=== PATIENT | male | born 1940 | race Hispanic/Latino ===

== ENCOUNTER → 2018-09-26 | Outpatient (CLI) | payer OTHER | END | disposition home or self-care (01) | LOC: OIH 12:53 | PROVIDERS: ATTEND Internal Medicine Cardiovascular Disease | DX: Z13.6 Encounter for screening for cardiovascular disorders (principal) | CPT/HCPCS: 75571 ==

== ENCOUNTER 2024-08-11 03:21 | Inpatient (IN) | payer OTHER, MEDICARE ==
[~2024-08-11] VITALS: Ht 167.6 cm; Wt 68.5 kg
--- NOTE | 2024-08-11 03:38 | ERN ---
ED Note History of Present Illness Stated Complaint: PAINFUL URINATION X 3 DAYS Chief Complaint: Painful Urination Time Seen by MD: 03:24 Dictation: This is an 84-year-old male who came via EMS complaining of painful urination for about a week he is somewhat confused in terms of the number of days although he stated that he has had issues for 3 days. He denied any hematuria. No fevers or chills. Already been seen 3 times at [facility] and other facilities for the same problem. It is unclear if he has been given any antibiotics. He has never had any indwelling Leonard but he did state that he takes 2 medications finasteride and Flomax for BPH He denied any urethral discharge. A history of back pain stating where his kidneys are located Temperature 97.9 pulse 83 respirations 16 blood pressure 171/84 with a pulse oximetry of 100% on room air His other chronic medical problems include hypertension, diabetes mellitus, hypercholesterolemia and BPH Allergies: Coded Allergies: No Known Drug Allergies (Unverified Allergy, Unknown, 08/11/24) Past Medical History Past Medical History: Diabetes-Type II, High Cholesterol, Hypertension Surgical History: Unknown RN Note Reviewed/Agreed w/PFSH: Yes Review of System Dictation Constitutional: Negative for fever,chills, and weight loss Eyes: Negative for injury, pain,redness, and discharge ENT: Negative for injury,pain or swelling Cardiovascular: Negative for chest pain, palpitations, and edema Respiratory: Negative for shortness of breath, cough, and wheezing, Abdomen/GI: Negative for abdominal pain, nausea, vomiting, diarrhea, and constipation Back: Negative for injury and pain : Negative for injury, bleeding and discharge positive for painful urination and frequency MS/Extremity: Negative for injury and deformity Skin: Negative for rash, and discoloration Neuro: Negative for headache, weakness, numbness, tingling, and seizure Psych: Negative for suicide ideation, homicidal ideation, and hallucinations Initial Vital Sign VS Vital Signs Date Time Temp Pulse Resp B/P (MAP) Pulse Ox O2 Delivery O2 Flow Rate FiO2 08/11/24 03:31 97.9 83 16 171/84 100 Room Air 0 08/11/24 04:29 21 Physical Exam Dictation General: awake, alert, NAD elderly male who appears to have urine on his clothes Head/Face: Normocephalic, atraumatic Eyes: PERRL, EOMI, vision at baseline ENT: oral cavity clear, TMs clear, no signs of infection Neck: Trachea midline, supple, no nuchal rigidity Cardiovascular: RRR, normal S1/S2, grade 2/6 ejection systolic murmur at the left sternal border and apex no JVD Respiratory: CTAB, no respiratory distress, No rales or wheezes Abdomen: Soft, non-tender, non-distended, normal bowel sounds, no guarding or rebound. Skin: Warm, dry, normal turgor, no rash MS/Extremity: Pulses equal, no cyanosis, neurovascular intact, FROM Neuro: COAx4, GCS 15, strength 5/5, CN 2-12 intact, normal cerebellar exam, normal gait, Psych: Normal behavior, mood, and affect normal Extremities-trace edema without any palpable cords, Homans sign is negative Results (Laboratory/Radiology) Laboratory/Radiology Laboratory Tests Test 08/11/24 04:12 08/11/24 05:34 Urine Color LIGHT-ORANGE (YELLOW) Urine Appearance CLOUDY (CLEAR) H Urine pH 6.0 (5.0-8.0) Urine Specific [place] 1.009 (1.001-1.031) Urine Protein 70 mg/dL (NEGATIVE) H Urine Glucose (UA) NEGATIVE mg/dL (NEGATIVE) Urine Ketones 5 mg/dL (NEGATIVE) H Urine Occult Blood LARGE (NEGATIVE) H Urine Nitrate NEGATIVE (NEGATIVE) Urine Bilirubin NEGATIVE mg/dL (NEGATIVE) Urine Urobilinogen 0.2 mg/dL (0.2-1.0) Urine Leukocyte Esterase 500 [place]/uL (NEGATIVE) H Urine RBC TNTC /HPF (0-1) H Urine WBC TNTC /HPF (0-1) H Urine WBC Clumps (Auto) FEW /HPF (0-1) Urine Other Crystals (Auto) 12 /HPF (None Seen) Urine Bacteria None /HPF (None Seen) White Blood Count 8.3 K/uL (4.8-10.8) Red Blood Count 3.52 MIL/uL (4.50-6.20) L Hemoglobin 12.0 g/dL (14.0-18.0) L Hematocrit 36.3 % (42-54) L Mean Corpuscular Volume 103.1 fL (79-99) H Mean Corpuscular Hemoglobin 34.1 pg (27.0-33.0) H Mean Corpuscular Hemoglobin Concent 33.1 g/dL (32.0-36.0) Red Cell Distribution Width 13.2 % (11.0-15.5) Platelet Count 149 K/uL (130-400) Mean Platelet Volume 10.6 fL (7.5-10.5) H Immature Granulocyte % (Auto) 0.1 % (0-1) Neutrophils (%) (Auto) 75.8 % (40.0-77.0) Lymphocytes (%) (Auto) 15.4 % (21.0-51.0) L Monocytes (%) (Auto) 7.6 % (3.0-13.0) Eosinophils (%) (Auto) 0.7 % (0.0-8.0) Basophils (%) (Auto) 0.4 % (0.0-5.0) Neutrophils # (Auto) 6.3 K/uL (1.8-7.7) Lymphocytes # (Auto) 1.3 K/uL (1.0-4.8) Monocytes # (Auto) 0.6 K/uL (0.1-1.0) Eosinophils # (Auto) 0.06 K/uL (0.00-0.70) Basophils # (Auto) 0.03 K/uL (0.00-0.20) Absolute Immature Granulocyte (auto 0.01 K/uL (0-1) Nucleated Red Blood Cells 0.0 % (0.0-0.19) Sodium Level 138 mmol/L (136-145) Potassium Level 4.2 mmol/L (3.5-5.1) Chloride Level 101 mmol/L (101-111) Carbon Dioxide Level 32 mmol/L (21-32) Blood Urea Nitrogen 14 mg/dL (7-18) Creatinine 1.2 mg/dL (0.5-1.3) Glomerular Filtration Rate Calc 59 mL/min (>90) Random Glucose 93 mg/dL (70-105) Lactic Acid Level 1.2 mmol/L (0.8-2.5) Total Calcium 8.4 mg/dL (8.5-10.1) L Labs Reviewed?: Yes ED Course ED Course Orders Procedure Category Date Status Time Urinalysis Profile LAB 08/11/24 Complete 03:39 Morphine 2mg Syg PHA 08/11/24 Complete (Morphine 2mg Syg) 04:30 Culture Urine MALIK 08/11/24 In Process 04:20 Cbc With Differential LAB 08/11/24 Complete 05:27 Basic Metabolic Panel LAB 08/11/24 Complete 05:27 Lactic Acid LAB 08/11/24 Complete 05:27 Blood Cult MALIK 08/11/24 In Process 05:27 0.9%Nacl 1000ml (Ns PHA 08/11/24 In Process 1000ml) 05:30 Ceftriaxone 1g Vial PHA 08/11/24 Complete (Rocephine 1g Inj) 06:00 Edm Admit Bridge Order ADM 08/11/24 Verified 06:56 Current Medications Medications (Trade) Dose Ordered Sig/Emory Route PRN Reason Start Time Stop Time Status Last Admin Dose Admin Ceftriaxone Sodium (ROCEphine 1G INJ) 1 gm ONCE ONCE IVPB 08/11/24 06:00 08/11/24 06:01 DC 08/11/24 06:02 Morphine Sulfate (morPHINE 2MG SYG) 1 mg ONCE ONCE IVP 08/11/24 04:30 08/11/24 04:31 DC 08/11/24 04:24 Sodium Chloride 1,000 ml @ 125 mls/hr ONCE ONCE IV 08/11/24 05:30 08/11/24 13:29 08/11/24 05:46 Vital Signs Date Time Temp Pulse Resp B/P (MAP) Pulse Ox O2 Delivery O2 Flow Rate FiO2 08/11/24 06:22 98.4 64 18 156/86 100 Room Air* 0 08/11/24 04:29 70 17 140/68 100 Room Air* 0 08/11/24 03:31 97.9 83 16 171/84 100 Room Air 0 We will perform diagnostic labs, and administer medications according to the patient's complaint. Once the results are available, will review and personally interpreted the labs to rule out any acute life-threatening emergency the trach require immediate intervention and treatment. I will then re-evaluate the patient after treatment and diagnostic exams have return to determine whether the patient requires any further testing, can safely be discharged home or need further admission to hospital for additional treatment and evaluation. 5:31 a.m. urinalysis revealed very abnormal study with large amounts of blood too numerous to count RBCs, leuko esterase positive and too numerous to count WBCs. In view of his prostate issues and multiple visits to the emergency room with similar complaints, I recommended admission to the hospital for management of the complicated UTI and have Urology evaluation as well. Agreeable Gentle hydration and cultures have also been requested. 6:57 a.m. patient has been accepted by [facility] for [facility] hospitalist group for admission and further management Medical Decision Making MDM MDM: Differential diagnosis: Complicated cystitis, prostatitis, pyelonephritis, urethritis, BPH Rationale: Tests considered and ordered secondary to shared decision making include: labs, ECG and radiology Previous outside records reviewed: Old ER visits. Risk of complication and/or morbidity or mortality of patient management: None Medications-Per medication reconciliation Need for hospitalization: Patient does meet criteria for hospitalization. Need for emergency major/minor surgery: No There are no social concerns with this patient. Prescription drug management Prescriptions will include symptomatic care Patient's prior external medical records from other ER visits were reviewed by me as indicated. Prior testing and results from previous visits were reviewed. Prior tests were taken into account with medical decision making and resource utilization, independent historian/historians were used to obtain complete medical history. I independently interpreted the test that were performed, results were reviewed by me and considered findings on radiology if ordered. Medical management and examination interpretation discussions were had by me with other qualified healthcare professionals as indicated for the patient's care. Problem List Problem List: (1) Complicated UTI (urinary tract infection) (2) BPH (benign prostatic hyperplasia) (3) Diabetes mellitus (4) Uncontrolled hypertension (5) Hyperlipidemia DX & DISP Disposition: Inpatient Decision to Admit Time: 05:33 Departure Impression: Primary Impression: Complicated UTI (urinary tract infection) Additional Impressions: BPH (benign prostatic hyperplasia), Diabetes mellitus, Uncontrolled hypertension, Hyperlipidemia Condition: Stable Additional Instructions: Patient was informed of all the diagnostic labs and procedures conducted in the emergency room today and demonstrated understanding of the results. I personally reviewed and interpreted all the diagnostic exams performed in the ER today. The patient will be admitted to the hospital for further treatment and evaluation. Disposition-admit to facility Condition-stable/guarded Course-uncertain at this time Pain status-decreased Assessment-exam unchanged Admission Certification- I certify that the patients status is appropriate and is based on my best clinical judgment and the patient's condition as documented in the medical records Referrals: ASHER CAMACHO MD (PCP) ELSIE PRESTON MD Aug 11, 2024 03:38
[2024-08-11 04:19] LABS: APPEARANCE,URINE CLOUDY (CLEAR); BILIRUBIN,URINE NEGATIVE (NEGATIVE); COLOR,URINE LIGHT-ORANGE (YELLOW); GLUCOSE, URINE (UA) NEGATIVE (NEGATIVE); KETONES,URINE 5 mg/dL (NEGATIVE); LEUKOCYTE ESTERASE ,URINE 500 Leu/uL (NEGATIVE); NITRATE,URINE NEGATIVE (NEGATIVE); OCCULT BLOOD,URINE LARGE (NEGATIVE); PROTEIN,URINE 70 mg/dL (NEGATIVE); UROBILINOGEN,URINE 0.2 mg/dL (0.2-1.0)
[2024-08-11 04:20] LABS: ADD UA MICROSCOPIC YES
[2024-08-11 04:24] LABS: RBC,URINE TNTC /HPF (0-1); UNCLASSIFIED CRYSTAL 12 /HPF (None Seen); WBC CLUMP FEW /HPF (0-1); WBC,URINE TNTC /HPF (0-1)
[2024-08-11] MEDS: morPHINE 2 MG SYG IVP ONE (04:24)
[2024-08-11] MEDS: 0.9%NACL 1000ML 1,000 ML IV ONE (05:46)
--- NOTE | 2024-08-11 05:49 | NUR ---
PATIENT DID NOT BRING HOME MEDICATIONS
[2024-08-11 05:53] LABS: BASOPHILS # (AUTO) 0.03 K/uL (0.00-0.20); BASOPHILS % (AUTO) 0.4 % (0.0-5.0); EOSINOPHILS # (AUTO) 0.06 K/uL (0.00-0.70); EOSINOPHILS % (AUTO) 0.7 % (0.0-8.0); HEMATOCRIT 36.3 % (42-54); IMMATURE GRANULOCYTE ABSOLUTE 0.01 K/uL (0-1); LYMPHOCYTES # (AUTO) 1.3 K/uL (1.0-4.8); LYMPHOCYTES % (AUTO) 15.4 % (21.0-51.0); MEAN CORPUSCULAR HEMOGLOBIN 34.1 pg (27.0-33.0); MEAN CORPUSCULAR HGB CONC 33.1 g/dL (32.0-36.0); MEAN CORPUSCULAR VOLUME 103.1 fL (79-99); MONOCYTES # (AUTO) 0.6 K/uL (0.1-1.0); MONOCYTES % (AUTO) 7.6 % (3.0-13.0); NEUTROPHILS # (AUTO) 6.3 K/uL (1.8-7.7); NEUTROPHILS % (AUTO) 75.8 % (40.0-77.0); PLATELET COUNT (AUTO) 149 K/uL (130-400); RED BLOOD CELL COUNT(AUTO) 3.52 MIL/uL (4.50-6.20); RED CELL DISTRIBUTION WIDTH 13.2 % (11.0-15.5); WHITE BLOOD COUNT (AUTO) 8.3 K/uL (4.8-10.8)
[2024-08-11 05:55] LABS: CREATININE 1.2 mg/dL (0.5-1.3); POTASSIUM 4.2 mmol/L (3.5-5.1)
[2024-08-11] MEDS: cefTRIAXone 1G VIAL IVPB ONE (06:02)
[2024-08-11] MEDS ORDERED: PoTASSium chl 10% ELIXIR 20MEQ 20 MEQ/15 ML UDCUP PO PRN (07:00)
[2024-08-11] MEDS ORDERED: MAGNESIUM 2GM PREMIX 50ML 50 ML IV PRN (07:00)
[2024-08-11] MEDS ORDERED: DEXTROSE 50%-WATER 50 ML DISP.SYRIN IV PRN (07:00)
[2024-08-11] MEDS ORDERED: PoTASSium chloRIDE 10MEQ/100ML 100 ML IV PRN (07:00)
[2024-08-11] MEDS ORDERED: GLUCAGON 1MG KIT 1 MG ML IM PRN (07:00)
[2024-08-11] MEDS ORDERED: MAG/ALUM/SIMETH 30 ML UDCUP PO PRN (07:30)
[2024-08-11] MEDS ORDERED: DiphenhydrAMINE HCL 50 MG/ML VIAL IV PRN (07:30)
[2024-08-11] MEDS ORDERED: hydrALAZine 20MG/ML VIAL IV PRN (07:30)
[2024-08-11] MEDS ORDERED: guaiFENesin-DM 200/20MG 10ML PO PRN (07:30)
[2024-08-11] MEDS ORDERED: cefTRIAXone 1G VIAL 2 GM in 0.9%NACL 100ML 100 ML IV SCH (07:30)
[2024-08-11] MEDS ORDERED: ZOLPidem TARTrate 5 MG TAB PO PRN (07:30)
[2024-08-11] MEDS ORDERED: ondanSETRON 4MG INJ IV PRN (07:30)
[2024-08-11] MEDS ORDERED: FAMOTIDINE 20MG VIAL IV PRN (07:30)
[2024-08-11] MEDS ORDERED: LACTULOSE 20 GM/30 ML UDCUP PO PRN (07:30)
[2024-08-11] MEDS ORDERED: acetaMINOPHEN 325 MG TAB PO PRN ×2 (07:30)
[2024-08-11] MEDS: INSULIN humuLIN R 100 UNIT/ML 3ML SQ SCH (07:30)
[2024-08-11] MEDS ORDERED: morPHINE 2 MG SYG IVP PRN (07:30)
[2024-08-11] MEDS ORDERED: NITROGLYCERIN 0.4 MG SL TAB SL PRN (07:30)
--- NOTE | 2024-08-11 07:58 | HMCIMG ---
CHEST 1VW REASON: congestion COMPARISON: None. FINDINGS: Lungs appear clear. No airspace opacities or significant effusions. Heart is enlarged. IMPRESSION: Clear lungs. Cardiac enlargement.
[2024-08-11] MEDS: FAMOTIDINE 20MG TAB PO SCH (09:00)
--- NOTE | 2024-08-11 09:06 | HP ---
[facility] HISTORY AND PHYSICAL Date of Service: Aug 11, 2024 Time of Service: 08:55 PCP:Dr Villalobos Admitting: Dr Baron, Allergies: No Allergy Information Available, No Known Drug Allergies HISTORY OF PRESENT ILLNESS: [Patient is 84 years old male with a past medical history of BPH, hypertension, diabetes, hyperlipidemia, dementia, who came to emergency department with a complaint of painful urination for the past about 1 to 2 weeks. Patient is very poor historian and two each health care provider who comes to the room he tells in some ways different stories. As per ED patient already has been 3 times in [facility] and other facilities for the same problem. Patient stated he does not take any antibiotics and had Leonard catheter inserted. He stated that he has been urinating blood but hearing ER there was no blood seen in the urine, but urinalysis is positive for urine occult blood large. 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 At this moment we will admit patient for UA positive for leukocytosis and painful urination. ] Most recent vital signs temperature 98.4 pulse 59 respiration 18 blood pressure 142/65 patient is on room air satting 100%. WBC 8.3 hemoglobin 12 hematocrit 36.3 platelets 149. Sodium 138 potassium 4.2 CO2 32 BUN 14 creatinine 1.2 GFR 59 random glucose 93 lactic acid 1.2 total calcium 8.4. Chest x-ray clear lungs cardiac enlargement. CT abdomen pelvis was done but waiting for the final results/reading. REVIEW OF SYSTEMS CONSTITUTIONAL: Denies fevers, chills, or night sweats. No unintentional weight loss reported. NEUROLOGICAL: Denies headache, amaurosis fugax, motor weakness, sensory deficit, vertigo/spinning sensation, gait abnormalities, or tremors. ENT: No hearing loss, otalgia, otorrhea, rhinitis, rhinorrhea, hoarseness, or sore throat. CARDIOVASCULAR: Denies any exertional angina, dyspnea on exertion, orthopnea, paroxysmal nocturnal dyspnea, palpitations, life-threatening arrhythmias, claudication. PULMONARY: Denies any shortness of breath, cough, phlegm/sputum, hemoptysis, pleuritic chest pain. SLEEP: Denies morning headaches, daytime somnolence or napping. Denies difficulty falling asleep, staying asleep, waking from sleep. Denies knowledge of snoring. GASTROINTESTINAL: Denies any type of dysphagia to either liquids or solids. Denies nausea, vomiting, pyrosis, early satiety, abdominal pain, diarrhea, constipation, or changes in stool consistency or caliber. Denies coffee-ground emesis, hematemesis, hematochezia, or melanotic stools. GENITOURINARY: Denies frequency, urgency, nocturia, or incontinence (Storage/Irritative symptoms.) Low urinary stream, straining to void, urinary intermittency or hesitancy, splitting of the voiding stream, terminal dribbling. Patient complains of painful urination with hematuria ENDOCRINOLOGIC: Denies polyuria, polydipsia, polyphagia or heat/cold intolerances. HEMATOLOGIC: Denies thrombophilia/previous clots, or coagulopathy/bleeding disorders. ONCOLOGIC: Denies personal history of malignancy. DERMATOLOGIC: Denies rashes or pruritus. PSYCHIATRIC: Denies any suicidal or homicidal ideation. Denies hallucinations. PAST MEDICAL HISTORY: [Hypertension, hyperlipidemia, BPH, diabetes, hyperlipidemia, dementia ] PAST SURGICAL HISTORY: [ Unknown ] PAST SOCIAL HISTORY: [ Patient denies smoking. Patient denies any drug illicit. Patient denies any alcohol illicit.] FAMILY HISTORY: [ Patient lives at home alone. Patient independent ] Coded Allergies: No Known Drug Allergies (Unverified Allergy, Unknown, 08/11/24) PHYSICAL EXAM GENERAL APPEARANCE: The patient is awake, alert, and oriented, in no acute cardiopulmonary distress. NEUROLOGICAL: Cranial nerves II-XII grossly intact. Motor is 5/5 in bilateral upper and lower extremities proximal to distal. No sensory deficits. HEENT: Face is symmetric. Pupils are equal and reactive. Extraocular movements are intact. NECK: Supple. No JVD. No thyromegaly. No submental, submandibular, pre- /postauricular, occipital or supraclavicular lymphadenopathy. CHEST: Normal chest expansion. No Telemetry. LUNGS: Absence of any rales, rhonchi or any wheezing. CARDIOVASCULAR: Regular. S1 and S2 normal. No appreciable rubs, murmurs or gallops. ABDOMEN: Soft, nontender, and nondistended. There is no rebound, voluntary guarding, or rigidity. : Deferred. No Leonard. EXTREMITIES: Non-edematous and not cyanotic. No clubbing. Good capillary refill. SKIN: No skin breakdown. Vital Sign (Last 24 Hours) 08/11/24 08:18 Temp 98.4 Pulse 59 Resp 18 B/P (MAP) 142/65 Pulse Ox 100 O2 Delivery Room Air* O2 Flow Rate 0 FiO2 21 LABS: Laboratory: Test 08/11/24 07:42 08/11/24 05:34 08/11/24 04:12 Range/Units Whole Blood Glucose 94 70-110 MG/DL White Blood Count 8.3 4.8-10.8 K/uL Red Blood Count 3.52 L 4.50-6.20 MIL/uL Hemoglobin 12.0 L 14.0-18.0 g/dL Hematocrit 36.3 L 42-54 % Mean Corpuscular Volume 103.1 H 79-99 fL Mean Corpuscular Hemoglobin 34.1 H 27.0-33.0 pg Mean Corpuscular Hemoglobin Concent 33.1 32.0-36.0 g/dL Red Cell Distribution Width 13.2 11.0-15.5 % Platelet Count 149 130-400 K/uL Mean Platelet Volume 10.6 H 7.5-10.5 fL Immature Granulocyte % (Auto) 0.1 0-1 % Neutrophils (%) (Auto) 75.8 40.0-77.0 % Lymphocytes (%) (Auto) 15.4 L 21.0-51.0 % Monocytes (%) (Auto) 7.6 3.0-13.0 % Eosinophils (%) (Auto) 0.7 0.0-8.0 % Basophils (%) (Auto) 0.4 0.0-5.0 % Neutrophils # (Auto) 6.3 1.8-7.7 K/uL Lymphocytes # (Auto) 1.3 1.0-4.8 K/uL Monocytes # (Auto) 0.6 0.1-1.0 K/uL Eosinophils # (Auto) 0.06 0.00-0.70 K/uL Basophils # (Auto) 0.03 0.00-0.20 K/uL Absolute Immature Granulocyte (auto 0.01 0-1 K/uL Nucleated Red Blood Cells 0.0 0.0-0.19 % Sodium Level 138 136-145 mmol/L Potassium Level 4.2 3.5-5.1 mmol/L Chloride Level 101 101-111 mmol/L Carbon Dioxide Level 32 21-32 mmol/L Blood Urea Nitrogen 14 7-18 mg/dL Creatinine 1.2 0.5-1.3 mg/dL Glomerular Filtration Rate Calc 59 >90 mL/min Random Glucose 93 70-105 mg/dL Lactic Acid Level 1.2 0.8-2.5 mmol/L Total Calcium 8.4 L 8.5-10.1 mg/dL Urine Color LIGHT-ORANGE YELLOW Urine Appearance CLOUDY H CLEAR Urine pH 6.0 5.0-8.0 Urine Specific [place] 1.009 1.001-1.031 Urine Protein 70 H NEGATIVE mg/dL Urine Glucose (UA) NEGATIVE NEGATIVE mg/dL Urine Ketones 5 H NEGATIVE mg/dL Urine Occult Blood LARGE H NEGATIVE Urine Nitrate NEGATIVE NEGATIVE Urine Bilirubin NEGATIVE NEGATIVE mg/dL Urine Urobilinogen 0.2 0.2-1.0 mg/dL Urine Leukocyte Esterase 500 H NEGATIVE [place]/uL Urine RBC TNTC H 0-1 /HPF Urine WBC TNTC H 0-1 /HPF Urine WBC Clumps (Auto) FEW 0-1 /HPF Urine Other Crystals (Auto) 12 None Seen /HPF Urine Bacteria None None Seen /HPF Current Medications Medications (Trade) Dose Ordered Sig/Emory Route PRN Reason Start Time Stop Time Status Last Admin Dose Admin Acetaminophen (TYLenol 325MG TAB) 650 mg Q4H PRN PO MILD PAIN (1-3) 08/11/24 07:30 09/10/24 07:29 Acetaminophen (TYLenol 325MG TAB) 650 mg Q6H PRN PO MILD PAIN (1-3) 08/11/24 07:30 08/11/24 07:12 DC Acetaminophen (TYLenol 325MG TAB) 650 mg Q6H PRN PO TEMPERATURE GREATER THAN 101.5 08/11/24 07:30 09/10/24 07:29 Al Hydroxide/Mg Hydroxide (MAALox PLUS 30ML) 30 ml Q6H PRN PO INDIGESTION 08/11/24 07:30 09/10/24 07:29 Ceftriaxone Sodium 2 gm/ Sodium Chloride 100 ml @ 200 mls/hr Q24H IV 08/11/24 07:30 08/11/24 07:12 DC Ceftriaxone Sodium (Rocephin 2gm Inj) 2 gm Q24H IVPB 08/12/24 08:00 08/22/24 07:59 Dextrose (D50w) 50 ml AD PRN IV HYPOGLYCEMIA PROTOCOL 08/11/24 07:00 09/10/24 06:59 Diphenhydramine HCl (BENAdryl INJ) 25 mg Q6H PRN IV SEVERE ITCHING/RASH 08/11/24 07:30 09/10/24 07:29 Famotidine (Pepcid 20mg Vial) 20 mg BID PRN IV NAUSEA/VOMITING 08/11/24 07:30 08/11/24 07:12 DC Famotidine (Pepcid 20mg Tab) 20 mg Q48H PO 08/11/24 09:00 09/10/24 08:59 Glucagon (Glucagon 1mg Kit) 1 mg AD PRN IM HYPOGLYCEMIA PROTOCOL 08/11/24 07:00 09/10/24 06:59 Guaifenesin/ Dextromethorphan (RobiTUSSin DM 200/20MG 10ML) 10 ml Q4H PRN PO COUGH 08/11/24 07:30 09/10/24 07:29 Hydralazine HCl (APRESOLine 20MG INJ) 10 mg Q6H PRN IV For:SBP above 160;DBP above 90 08/11/24 07:30 09/10/24 07:29 Insulin Human Regular (humuLIN R 100 UNIT/ML 3ML) INSULIN SLIDING SCAL... ACHS SQ 08/11/24 07:30 09/10/24 07:29 Ketorolac Tromethamine (toRADol) 15 mg Q8H PRN IV MODERATE PAIN (4-6) 08/11/24 07:30 08/16/24 07:29 Lactulose (Constulose 20gm/ 30ml Udcup) 20 gm BID PRN PO CONSTIPATION 08/11/24 07:30 09/10/24 07:29 Magnesium Sulfate 50 ml @ 0 mls/hr PROTOCOL PRN IV other 08/11/24 07:00 09/10/24 06:59 Morphine Sulfate (morPHINE 2MG SYG) 1 mg Q4H PRN IVP SEVERE PAIN (7-10) 08/11/24 07:30 08/18/24 07:29 Nitroglycerin (Nitrostat) 0.4 mg PROTOCOL PRN SL CHEST PAIN 08/11/24 07:30 09/10/24 07:29 Ondansetron HCl (zoFRAN 4MG INJ) 4 mg Q6H PRN IV NAUSEA/VOMITING 08/11/24 07:30 09/10/24 07:29 Potassium Chloride 100 ml @ 100 mls/hr AD PRN IV POTASSIUM PROTOCOL 08/11/24 07:00 09/10/24 06:59 Potassium Chloride (K-Dur 10meq Sr Tab) 10 meq AD PRN PO POTASSIUM PROTOCOL 08/11/24 07:00 09/10/24 06:59 Potassium Chloride (KCl 10% Elixir 20meq/15ml) 10 meq AD PRN PO POTASSIUM PROTOCOL 08/11/24 07:00 09/10/24 06:59 Zolpidem Tartrate (AmbIEN) 5 mg HS PRN PO INSOMNIA 08/11/24 07:30 09/10/24 07:29 DIAGNOSTICS / RADIOLOGY: [ ] ASSESSMENT: [ Acute complicated cystitis POA Hematuria POA Multifactorial anemia due to above POA Uncontrolled diabetes mellitus type 2 with hypoglycemia POA Uncontrolled hypertension POA Electrolyte imbalance hypocalcemia 8.4 BPH POA Hyperlipidemia POA Dementia POA ] PLAN: [ Admit to: Medical-surgical floor Consults: Urologist Antibiotics: Rocephin Tests: CT abdomen pelvis NEURO: Minimize central acting medications as possible. Fall Precautions. Well lighted room through the day and minimize interruptions through the night to prevent acute delirium. PULMONARY: Chest x-ray showed cardiac enlargement but clear lungs Supplemental 02 as needed BiPAP as necessary, for respiratory distress Titrate Fio2 to keep Spo2 > or = 90% DuoNebs and CPT as needed IS hourly while awake for pulmonary hygiene Out of bed to chair as tolerated VAP Bundle Maintain aspiration precautions at all times CARDIOVASCULAR: Follow hemodynamics. Vital signs per facility protocol GI & NUTRITION: CT abdomen/pelvis pending Continue nutritional support Aspirations precautions Prokinetic agents and laxatives as needed KIDNEYS & ELECTROLYTES: Strict monitoring of intake and output Daily weights Avoid nephrotoxic agents Monitor electrolytes and replace as needed Goal urine output of 30mL/hr or 0.5mL/kg/hr Medications to be dosed according to renal function. Avoid contrast if possible ENDOCRINE: Maintain blood glucose between 100-180 at all times. Insulin sliding scale for blood glucose management Hypoglycemia and hyperglycemia protocol in place INFECTIOUS DISEASE: Trend temperature, WBC and procalcitonin level Follow cultures, deescalate antibiotics as soon as possible. Panculture if new onset fever HEMATOLOGY & COAGULATION: Leukocytosis positive on UA Monitor H&H. Keep Hgb > 7 Transfuse 1 unit of PRBC for Hgb < 7 Transfuse 1 pack of platelets of platelets < 20, 000 Watch for any signs and symptoms of bleeding SKIN: Pressure ulcer prevention per facility protocol Specialty mattress as needed Treatment plan discussed with patient and family at the bedside Medications to be reconciled once obtained by patient and/or family and available to be reconciled in computer p.r.n. medication for pain nausea and vomiting Questions were answered We will continue to monitor the patient closely Wigs Salesperson for disposition Rehab: PT/OT GI: PPI DVT: SCD's Code Status: Full Resuscitation Disposition: TBD Prognosis: Guarded] ATTESTATION BY PHYSICIAN I have seen and examined the patient. I reviewed the documentation, medical decision making, and treatment plan as noted by the mid-level provider above. I agree with the findings and plan of care. Liz Braon MD, [facility] [employer] REGULATOR Aug 11, 2024 09:06
--- NOTE | 2024-08-11 10:57 | NUR ---
DCP: HOME Pt is a , seen at local [place] by Dr Villalobos for medical care and meds. Pt lives at home alone. Has a provider thru [facility] 2hrs a day. Provider assists with meal, home management and with his ADLS. A nurse visits 1x a month as well. Pt has no DME. Pt denies need for SNF, states he wants to [facility] [place] [facility] and abhishek De Santiago [phone] will transport Addendum: 08/11/24 at 1101 by PIERRE MARIO SS Amended: Links added.
--- NOTE | 2024-08-11 11:03 | HMCIMG ---
CT ABDOMEN WITHOUT CONTRAST. CT PELVIS WITHOUT CONTRAST. INDICATION: Painful urination TECHNIQUE: Routine transaxial imaging using 5 mm slice thickness through the abdomen and pelvis without the administration of IV contrast. Thin slice reconstructions are also provided. Coronal and sagittal reformatted images acquired for interpretation. CT was performed with one or more of the following dose reduction techniques: Automated exposure control, adjustment of the mA and/or kV according to patient size, or use of iterative reconstruction technique. COMPARISON: None FINDINGS: ON NONCONTRAST IMAGING: ABDOMEN: Heart size is normal. Coronary arterial wall calcific plaque noted. Visible lung bases are clear. No abnormal right renal calcifications, hydronephrosis, perinephric inflammation, or proximal hydroureter detected. 1.2 cm nonobstructing calculus within the mid to upper portion of the left kidney. The liver is normal in size and smooth in contour without biliary duct dilation. The spleen is normal in size and attenuation. The gallbladder appears normal. The pancreas appears normal without pancreatic duct dilation. The adrenal glands appear normal. No significant abdominal, retrocrural or retroperitoneal adenopathy noted. No evidence for intra-abdominal free air or organized fluid collection. Small hiatal hernia. Tiny fat-containing nonobstructing umbilical hernia. Mild calcific plaque is noted along the abdominal aortic and iliac vessel rogers without aneurysmal dilation. PELVIS: Nominal urinary bladder wall thickening and trace surrounding inflammatory fat stranding. No evidence for free air or organized pelvic fluid collection. No significant pelvic adenopathy detected. 3.2 cm diverticulum arising medially of the first segment of the duodenum. Several diverticula along the distal colon.. Terminal ileum appears unremarkable. The appendix is absent. Prostate gland measures 5.2 x 5.2 x 4.8 cm. Visible osseous structures are intact. IMPRESSION: 1. 1.2 cm nonobstructing left renal stone and suspect nominal/mild cystitis. Prostate gland measures 5.2 x 5.2 x 4.8 cm. 2. Distal colonic diverticulosis. 3. Small hiatal hernia, tiny fat-containing nonobstructing umbilical hernia, and 3.2 cm proximal duodenal diverticulum. 4. Arteriosclerotic disease as described.
--- NOTE | 2024-08-11 14:47 | NUR ---
FAXED CT ABD/ PELVIS RESULT TO HONORIO RENDON AT DR. BARRERA OFFICE [id number], AWARE OF NEW CONSULT WITH DR. BARRERA.
[2024-08-11 15:10] VITALS: BP 141/64; PULSE 65; RESP 18; TEMP 98.2
[2024-08-11 15:28] LABS: COVID19 (SARS ANTIGEN RAPID) PRESUMPTIVE NEGATIVE (NEGATIVE); INFLUENZA TYPE A Negative For Type A (NEGATIVE); INFLUENZA TYPE B Negative For Type B (NEGATIVE)
[2024-08-11 15:55] VITALS: O2SAT 96
--- NOTE | 2024-08-11 16:08 | NUR ---
Admission The patient is admitted from the ER. He is forgetful and has a slight delay in speech. The patient himself says that he has trouble speaking. He is moving all extremities with equal strength. Unable to assess gait on this assessment but the patient voices that he uses a beltrán at home and requires help with all ADLS except eating. His chief complaint is "blood in the urine". HE has voided twice and has not shown any gross bleeding. The patient is oriented to the room and how to use the call bright. The bed is in a low position with the call bright in reach. The bed alrm is active and he is encouraged to call for any needs or concerns.
[2024-08-11 20:00] VITALS: BP 159/75; PULSE 68; RESP 19; TEMP 98.1; O2SAT 98
--- NOTE | 2024-08-11 22:22 | NUR ---
PER RN, PT CAN NOT CONSENT TO CT EXAM AND SHE WILL RESCHEDULE FOR MORNING.
[2024-08-12] VITALS (7 sets, daily range): BP systolic 141–157; BP diastolic 61–86; PULSE 57–65; RESP 18–20; TEMP 97.5–98.1; O2SAT 98–100
--- NOTE | 2024-08-12 02:05 | CONS ---
REQUESTING PHYSICIAN: Dr. Baron. REASON FOR CONSULTATION: Hematuria. HISTORY OF PRESENT ILLNESS: This 84-year-old male presents to the hospital because of painful urination and dysuria for about 2 weeks' duration. The patient with advanced Alzheimer's, history obtained primarily from chart review. The patient on direct questioning reports that he has some dysuria, has had no gross hematuria. He denies any back pain. He has no fever, no chills. ALLERGIES: Listed as none. CURRENT MEDICATIONS: Include Tylenol, ceftriaxone, Benadryl, famotidine, glucagon, guaifenesin, insulin, ketorolac, lactulose, morphine, Zofran, and Ambien on a p.r.n. basis. FAMILY HISTORY: Negative for kidney stones. SOCIAL HISTORY: The patient lives at home with a provider. PAST SURGICAL HISTORY: Unknown. PAST MEDICAL HISTORY: Includes hyperlipidemia, dementia, diabetes, and hypertension. REVIEW OF SYSTEMS: He currently has no shortness of breath or chest pain. His appetite is good. No nausea, no vomiting, no constipation or diarrhea. No headaches or dizziness. No nosebleeds. No joint pain, joint swelling, limitation of movement, night sweats, fever, chills, or skin rash. PHYSICAL EXAMINATION: GENERAL: Well-developed male in no distress. VITAL SIGNS: His temperature is 98, blood pressure is 140/65 with a pulse of 80. NECK: Has no adenopathy or supraclavicular masses palpable. LUNGS: Shea are clear to auscultation and percussion. HEART: Sounds are best heard in the fifth intercostal space, midclavicular line. ABDOMEN: Full, soft, nontender. BACK: No CVA tenderness. EXTERNAL GENITALIA: Phallus not circumcised, has a large hydrocele on the left hand side. RECTAL: Normal sphincter, empty rectum, 35 grams benign feeling prostate, no nodules. Lateral sulci clear as well as median raphae. LABORATORY DATA: Shows a white count of 8.3, hematocrit is 36, the patient's platelet count is 149. Sodium 138, potassium 4.2 and his BUN and creatinine are 14/1.2. The patient's urinalysis shows clear yellow urine, specific gravity of 1.009. He has some white cells and red cells in the urine, has no bacteria. IMAGING STUDIES: Reviewed, show atrophic kidneys bilaterally. He also has a left-sided nonobstructive kidney stone, left side measuring about 1 cm. The patient's bladder outline is smooth and he does appear to have a large hydrocele as well. ASSESSMENT: * Nonobstructing left-sided kidney stone. * Urinary tract infection * Dysuria * Hydrocele. RECOMMENDATIONS: * Scrotal ultrasound. * CT scan abdomen and pelvis with IV contrast. * Culture specific antibiotics. * Follow up with PCP as an outpatient for referral to Urology of his choice to proceed with diagnostic cystoscopy as an outpatient to complete workup for hematuria. * Finally, the patient's concerns and questions answered. Once his urinary tract infection is resolved, the patient would also be advised to proceed with PSA. Thank you for the opportunity of providing consultation on your patient. TID: [id number] RECEIPT: [id number]
[2024-08-12] MEDS: acetaMINOPHEN 325 MG TAB PO PRN (03:49)
[2024-08-12] MEDS: ketOROlac 15MG/ML VIAL (15MG/ML) IV PRN (03:53)
[2024-08-12 06:55] LABS: BASOPHILS # (AUTO) 0.04 K/uL (0.00-0.20); BASOPHILS % (AUTO) 0.6 % (0.0-5.0); EOSINOPHILS # (AUTO) 0.11 K/uL (0.00-0.70); EOSINOPHILS % (AUTO) 1.7 % (0.0-8.0); HEMATOCRIT 34.6 % (42-54); IMMATURE GRANULOCYTE ABSOLUTE 0.02 K/uL (0-1); LYMPHOCYTES # (AUTO) 1.8 K/uL (1.0-4.8); LYMPHOCYTES % (AUTO) 26.8 % (21.0-51.0); MEAN CORPUSCULAR HEMOGLOBIN 33.6 pg (27.0-33.0); MEAN CORPUSCULAR HGB CONC 33.2 g/dL (32.0-36.0); MEAN CORPUSCULAR VOLUME 101.2 fL (79-99); MONOCYTES # (AUTO) 0.6 K/uL (0.1-1.0); MONOCYTES % (AUTO) 9.6 % (3.0-13.0); PLATELET COUNT (AUTO) 155 K/uL (130-400); RED BLOOD CELL COUNT(AUTO) 3.42 MIL/uL (4.50-6.20); RED CELL DISTRIBUTION WIDTH 12.8 % (11.0-15.5); WHITE BLOOD COUNT (AUTO) 6.5 K/uL (4.8-10.8)
[2024-08-12 07:06] LABS: INR 0.97 (0.85-1.15); PROTHROMBIN TIME 10.3 SEC (9.6-11.6)
[2024-08-12 07:07] LABS: PARTIAL THROMBOPLASTIN TIME 27.1 SEC (26.3-35.5)
--- NOTE | 2024-08-12 07:23 | NUR ---
PER NURSE, PENDING CONSENT FROM FAMILY MEMBER. NURSE WILL CALL WHEN READY. Addendum: 08/12/24 at 0724 by JOHANNA CARTWRIGHT PENDING CONSENT FROM FAMILY FOR CT EXAM.
[2024-08-12 07:25] LABS: ALANINE AMINOTRANSFERASE 11 U/L (12-78); ALBUMIN 2.9 g/dL (3.5-5.0); ASPARTATE AMINOTRANSFERASE 12 U/L (10-37); BILIRUBIN,DIRECT 0.1 mg/dL (0.0-0.3); BILIRUBIN,TOTAL 0.7 mg/dL (0.2-1.0); CARBON DIOXIDE 29 mmol/L (21-32); CHLORIDE 107 mmol/L (101-111); CREATINE KINASE, TOTAL 42 U/L (21-232); CREATININE 1.2 mg/dL (0.5-1.3); GLOMERULAR FILTR. RATE CALC 59 mL/min (>90); GLUCOSE,RANDOM 97 mg/dL (70-105); HEMOGLOBIN A1C 5.6 % (4.0-6.0); POTASSIUM 3.8 mmol/L (3.5-5.1); SODIUM SERUM 137 mmol/L (136-145); TOTAL PROTEIN, SERUM 6.2 g/dL (6.0-8.3); UREA NITROGEN, BLOOD 13 mg/dL (7-18)
[2024-08-12 07:39] LABS: AMMONIA < 10 umol/L (11-32)
--- NOTE | 2024-08-12 08:02 | HMCIMG ---
US SCROTUM & CONTENTS HISTORY: Enlarged scrotum/hydrocele COMPARISON: None TECHNIQUE: Duplex scrotal ultrasound study was performed. FINDINGS: The right testes and bilateral epididymides are not well visualized most likely related to large hydrocele limiting [id number]. The left testes measures 5.7 x 2.5 x 3 cm. This is a limited study. IMPRESSION: 1. The right testes and bilateral epididymides are not well visualized most likely related to large hydrocele limiting [id number]. The left testes measures 5.7 x 2.5 x 3 cm. This is a limited study.
--- NOTE | 2024-08-12 08:26 | NUR ---
CT CONSENT Attempt to obtain verbal consent, called Abdirashid Reynoso, no answer, will attempt later today.
[2024-08-12] MEDS: CEFTRIAXONE 2GM VIAL IVPB SCH (09:07)
[2024-08-12] MEDS: PoTASSium chloRIDE 10MEQ SR 10 MEQ/TAB TAB.SR.24H PO PRN (09:21)
[2024-08-12] MEDS ORDERED: IOHEXOL-350 75 ML VIAL IV ONE (10:45)
--- NOTE | 2024-08-12 11:22 | HMCIMG ---
CT ABDOMEN/PELVIS W/WO CONTRAS HISTORY: Hematuria COMPARISON: None TECHNIQUE: Multiple sequential axial images of the abdomen and pelvis were obtained from the dome of the diaphragm through symphysis pubis. Patient was not given contrast through intravenous route. Oral contrast was not given. FINDINGS: No pleural effusion is seen bilaterally. There are bilateral interstitial fibrosis. There is no evidence of parenchymal disease or pulmonary nodule of the visualized lower lungs. Degenerative changes of the thoracolumbar spine are present. The heart is not enlarged. Stomach is poorly distended with gastric wall thickening. This may be related to gastritis with mass lesion not excluded. Gallbladder is distended. There is diverticulosis. There is questionable fat stranding adjacent to the descending colon/sigmoid colon with early acute diverticulitis not excluded. No focal abscess is seen however. Prostate gland is mildly enlarged measuring 5.2 x 4.7 cm. There is posterior bladder wall thickening measuring 9 mm. This may be related to mass lesion versus cystitis. The liver, spleen, adrenal glands and pancreas are unremarkable. There is no evidence of hydronephrosis bilaterally. No evidence of renal stone is seen. Fecal material is seen in the colon. There are normal size retroperitoneal and mesenteric lymph nodes. No ascites is seen. Atherosclerotic changes are present. Pelvic sidewalls are symmetric bilaterally. Bladder is moderately distended. There appears be large scrotal hydrocele. IMPRESSION: 1. There is diverticulosis. There is questionable fat stranding adjacent to the descending colon/sigmoid colon with early acute diverticulitis not excluded. No focal abscess is seen however. Prostate gland is mildly enlarged measuring 5.2 x 4.7 cm. There is posterior bladder wall thickening measuring 9 mm. This may be related to mass lesion versus cystitis. There appears be large scrotal hydrocele. There appears be large scrotal hydrocele. CT was performed with one or more following dose reduction techniques: automated exposure control, adjustment of the mA and kv according to patient's size, or use of a iterative reconstruction technique.
--- NOTE | 2024-08-12 13:05 | PN ---
[facility] PROGRESS NOTE Date of Service: Aug 12, 2024 Time of Service: 12:[address] Baron SUBJECTIVE: [ 08/11 [Patient is 84 years old male with a past medical history of BPH, hypertension, diabetes, hyperlipidemia, dementia, who came to emergency dep artment with a complaint of painful urination for the past about 1 to 2 weeks. Patient is very poor historian and two each health care provider who comes to the room he tells in some ways different stories. As per ED patient already has been 3 times in [facility] and other facilities for the same problem. Patient stated he does not take any antibiotics and had Leonard catheter inserted. He stated that he has been urinating blood but hearing ER there was no blood seen in the urine, but urinalysis is positive for urine occult blood large. Also as per RN patient told her that he has a history of colon cancer and he went through the radiation/chemotherapy, but nurse practitioner he denies any above-stated diagnosis. At this moment we will admit patient for UA positive for leukocytosis and painful urination. ] Most recent vital signs temperature 98.4 pulse 59 respiration 18 blood pressure 142/65 patient is on room air satting 100%. WBC 8.3 hemoglobin 12 hematocrit 36.3 platelets 149. Sodium 138 potassium 4.2 CO2 32 BUN 14 creatinine 1.2 GFR 59 random glucose 93 lactic acid 1.2 total calcium 8.4. Chest x-ray clear lungs cardiac enlargement. CT abdomen pelvis was done but waiting for the final results/reading. 08/12 patient was seen by nurse practitioner physician during rounding in room 425. Patient was evaluated by the urologist and at this moment he is recommending CT abdomen/pelvis with without the contrast. Urologist is also recommending cystoscopy outpatient once discharged. Patient is s/p CT abdomen/pelvis with and without contrast which showed early acute diverticulosis. Diverticulitis not excluded. No abscess. Shows bladder thickening mass versus cystitis. Large scrotal hydrocele tele. Scrotal ultrasound showed right testes and bilateral epididymitis not visualized due to hydrcele. Urinalysis was positive for leukocytosis. Urine culture at this moment is growing Gram-negative rods. Patient is on Rocephin WBC 6.5. No home medications available at this moment. Blood culture pending. We will continue to monitor patient in the meantime. A.m. labs REVIEW OF SYSTEMS CONSTITUTIONAL: Denies fevers, chills, or night sweats. No unintentional weight loss reported. NEUROLOGICAL: Denies headache, amaurosis fugax, motor weakness, sensory deficit, vertigo/spinning sensation, gait abnormalities, or tremors. ENT: No hearing loss, otalgia, otorrhea, rhinitis, rhinorrhea, hoarseness, or sore throat. CARDIOVASCULAR: Denies any exertional angina, dyspnea on exertion, orthopnea, paroxysmal nocturnal dyspnea, palpitations, life-threatening arrhythmias, claudication. PULMONARY: Denies any shortness of breath, cough, phlegm/sputum, hemoptysis, pleuritic chest pain. SLEEP: Denies morning headaches, daytime somnolence or napping. Denies difficulty falling asleep, staying asleep, waking from sleep. Denies knowledge of snoring. GASTROINTESTINAL: Denies any type of dysphagia to either liquids or solids. Denies nausea, vomiting, pyrosis, early satiety, abdominal pain, diarrhea, constipation, or changes in stool consistency or caliber. Denies coffee-ground emesis, hematemesis, hematochezia, or melanotic stools. GENITOURINARY: Denies frequency, urgency, nocturia, or incontinence (Storage/Irritative symptoms.) Low urinary stream, straining to void, urinary intermittency or hesitancy, splitting of the voiding stream, terminal dribbling. Patient complains of painful urination with hematuria ENDOCRINOLOGIC: Denies polyuria, polydipsia, polyphagia or heat/cold intolerances. HEMATOLOGIC: Denies thrombophilia/previous clots, or coagulopathy/bleeding disorders. ONCOLOGIC: Denies personal history of malignancy. DERMATOLOGIC: Denies rashes or pruritus. PSYCHIATRIC: Denies any suicidal or homicidal ideation. Denies hallucinations. PHYSICAL EXAM GENERAL APPEARANCE: The patient is awake, alert, and oriented, in no acute cardiopulmonary distress. NEUROLOGICAL: Cranial nerves II-XII grossly intact. Motor is 5/5 in bilateral upper and lower extremities proximal to distal. No sensory deficits. HEENT: Face is symmetric. Pupils are equal and reactive. Extraocular movements are intact. NECK: Supple. No JVD. No thyromegaly. No submental, submandibular, pre- /postauricular, occipital or supraclavicular lymphadenopathy. CHEST: Normal chest expansion. No Telemetry. LUNGS: Absence of any rales, rhonchi or any wheezing. CARDIOVASCULAR: Regular. S1 and S2 normal. No appreciable rubs, murmurs or gallops. ABDOMEN: Soft, nontender, and nondistended. There is no rebound, voluntary guarding, or rigidity. : Deferred. No Leonard. EXTREMITIES: Non-edematous and not cyanotic. No clubbing. Good capillary refill. SKIN: No skin breakdown. Vital Signs (last 8hr) Date Time Temp Pulse Resp B/P (MAP) Pulse Ox O2 Delivery O2 Flow Rate FiO2 08/12/24 11:30 97.9 65 18 157/83 100 Room Air 21 08/12/24 07:30 97.5 62 18 151/80 100 Room Air 21 LABS: Laboratory: Test 08/12/24 11:22 08/12/24 06:30 08/11/24 14:52 08/11/24 04:12 Range/Units Whole Blood Glucose 99 70-110 MG/DL White Blood Count 6.5 4.8-10.8 K/uL Red Blood Count 3.42 L 4.50-6.20 MIL/uL Hemoglobin 11.5 L 14.0-18.0 g/dL Hematocrit 34.6 L 42-54 % Mean Corpuscular Volume 101.2 H 79-99 fL Mean Corpuscular Hemoglobin 33.6 H 27.0-33.0 pg Mean Corpuscular Hemoglobin Concent 33.2 32.0-36.0 g/dL Red Cell Distribution Width 12.8 11.0-15.5 % Platelet Count 155 130-400 K/uL Mean Platelet Volume 10.8 H 7.5-10.5 fL Immature Granulocyte % (Auto) 0.3 0-1 % Neutrophils (%) (Auto) 61.0 40.0-77.0 % Lymphocytes (%) (Auto) 26.8 21.0-51.0 % Monocytes (%) (Auto) 9.6 3.0-13.0 % Eosinophils (%) (Auto) 1.7 0.0-8.0 % Basophils (%) (Auto) 0.6 0.0-5.0 % Neutrophils # (Auto) 4.0 1.8-7.7 K/uL Lymphocytes # (Auto) 1.8 1.0-4.8 K/uL Monocytes # (Auto) 0.6 0.1-1.0 K/uL Eosinophils # (Auto) 0.11 0.00-0.70 K/uL Basophils # (Auto) 0.04 0.00-0.20 K/uL Absolute Immature Granulocyte (auto 0.02 0-1 K/uL Nucleated Red Blood Cells 0.0 0.0-0.19 % Prothrombin Time 10.3 9.6-11.6 SEC Prothromb Time International Ratio 0.97 0.85-1.15 Activated Partial Thromboplast Time 27.1 26.3-35.5 SEC Sodium Level 137 136-145 mmol/L Potassium Level 3.8 3.5-5.1 mmol/L Chloride Level 107 101-111 mmol/L Carbon Dioxide Level 29 21-32 mmol/L Blood Urea Nitrogen 13 7-18 mg/dL Creatinine 1.2 0.5-1.3 mg/dL Glomerular Filtration Rate Calc 59 >90 mL/min Random Glucose 97 70-105 mg/dL Hemoglobin A1c 5.6 4.0-6.0 % Estimated Average Glucose (eAG) 114 70-126 mg/dL Lactic Acid Level 1.4 0.8-2.5 mmol/L Total Calcium 8.4 L 8.5-10.1 mg/dL Magnesium Level 2.00 1.80-2.40 mg/dL Total Bilirubin 0.7 0.2-1.0 mg/dL Direct Bilirubin 0.1 0.0-0.3 mg/dL Aspartate Amino Transf (AST/SGOT) 12 10-37 U/L Alanine Aminotransferase (ALT/SGPT) 11 L 12-78 U/L Alkaline Phosphatase 69 50-136 U/L Ammonia < 10 L 11-32 umol/L Total Creatine Kinase 42 21-232 U/L Troponin I High Sensitivity 6.6 4-75 ng/L B-Type Natriuretic Peptide 158 H 0-100 pg/mL Total Protein 6.2 6.0-8.3 g/dL Albumin 2.9 L 3.5-5.0 g/dL Procalcitonin < 0.05 L 0.05-0.5 ng/mL Influenza Type A Antigen Negative For Type A NEGATIVE Influenza Type B Antigen Negative For Type B NEGATIVE SARS-CoV-2 Antigen (Rapid) PRESUMPTIVE NEGATIVE NEGATIVE Urine Color LIGHT-ORANGE YELLOW Urine Appearance CLOUDY H CLEAR Urine pH 6.0 5.0-8.0 Urine Specific [place] 1.009 1.001-1.031 Urine Protein 70 H NEGATIVE mg/dL Urine Glucose (UA) NEGATIVE NEGATIVE mg/dL Urine Ketones 5 H NEGATIVE mg/dL Urine Occult Blood LARGE H NEGATIVE Urine Nitrate NEGATIVE NEGATIVE Urine Bilirubin NEGATIVE NEGATIVE mg/dL Urine Urobilinogen 0.2 0.2-1.0 mg/dL Urine Leukocyte Esterase 500 H NEGATIVE [place]/uL Urine RBC TNTC H 0-1 /HPF Urine WBC TNTC H 0-1 /HPF Urine WBC Clumps (Auto) FEW 0-1 /HPF Urine Other Crystals (Auto) 12 None Seen /HPF Urine Bacteria None None Seen /HPF Current Medications Medications (Trade) Dose Ordered Sig/[place] Route PRN Reason Start Time Stop Time Status Last Admin Dose Admin Acetaminophen (TYLenol 325MG TAB) 650 mg Q4H PRN PO MILD PAIN (1-3) 08/11/24 07:30 09/10/24 07:29 08/12/24 03:49 650 MG Acetaminophen (TYLenol 325MG TAB) 650 mg Q6H PRN PO MILD PAIN (1-3) 08/11/24 07:30 08/11/24 07:12 DC Acetaminophen (TYLenol 325MG TAB) 650 mg Q6H PRN PO TEMPERATURE GREATER THAN 101.5 08/11/24 07:30 09/10/24 07:29 Al Hydroxide/Mg Hydroxide (MAALox PLUS 30ML) 30 ml Q6H PRN PO INDIGESTION 08/11/24 07:30 09/10/24 07:29 Ceftriaxone Sodium 2 gm/ Sodium Chloride 100 ml @ 200 mls/hr Q24H IV 08/11/24 07:30 08/11/24 07:12 DC Ceftriaxone Sodium (Rocephin 2gm Inj) 2 gm Q24H IVPB 08/12/24 08:00 08/22/24 07:59 08/12/24 09:07 2 GM Dextrose (D50w) 50 ml AD PRN IV HYPOGLYCEMIA PROTOCOL 08/11/24 07:00 09/10/24 06:59 Diphenhydramine HCl (BENAdryl INJ) 25 mg Q6H PRN IV SEVERE ITCHING/RASH 08/11/24 07:30 09/10/24 07:29 Famotidine (Pepcid 20mg Vial) 20 mg BID PRN IV NAUSEA/VOMITING 08/11/24 07:30 08/11/24 07:12 DC Famotidine (Pepcid 20mg Tab) 20 mg Q48H PO 08/11/24 09:00 09/10/24 08:59 Glucagon (Glucagon 1mg Kit) 1 mg AD PRN IM HYPOGLYCEMIA PROTOCOL 08/11/24 07:00 09/10/24 06:59 Guaifenesin/ Dextromethorphan (RobiTUSSin DM 200/20MG 10ML) 10 ml Q4H PRN PO COUGH 08/11/24 07:30 09/10/24 07:29 Hydralazine HCl (APRESOLine 20MG INJ) 10 mg Q6H PRN IV For:SBP above 160;DBP above 90 08/11/24 07:30 09/10/24 07:29 Insulin Human Regular (humuLIN R 100 UNIT/ML 3ML) INSULIN SLIDING SCAL... ACHS SQ 08/11/24 07:30 09/10/24 07:29 Ketorolac Tromethamine (toRADol) 15 mg Q8H PRN IV MODERATE PAIN (4-6) 08/11/24 07:30 08/16/24 07:29 08/12/24 03:53 15 MG Lactulose (Constulose 20gm/ 30ml Udcup) 20 gm BID PRN PO CONSTIPATION 08/11/24 07:30 09/10/24 07:29 Magnesium Sulfate 50 ml @ 0 mls/hr PROTOCOL PRN IV other 08/11/24 07:00 09/10/24 06:59 Morphine Sulfate (morPHINE 2MG SYG) 1 mg Q4H PRN IVP SEVERE PAIN (7-10) 08/11/24 07:30 08/18/24 07:29 Nitroglycerin (Nitrostat) 0.4 mg PROTOCOL PRN SL CHEST PAIN 08/11/24 07:30 09/10/24 07:29 Ondansetron HCl (zoFRAN 4MG INJ) 4 mg Q6H PRN IV NAUSEA/VOMITING 08/11/24 07:30 09/10/24 07:29 Potassium Chloride 100 ml @ 100 mls/hr AD PRN IV POTASSIUM PROTOCOL 08/11/24 07:00 09/10/24 06:59 Potassium Chloride (K-Dur 10meq Sr Tab) 10 meq AD PRN PO POTASSIUM PROTOCOL 08/11/24 07:00 09/10/24 06:59 08/12/24 09:21 10 MEQ Potassium Chloride (KCl 10% Elixir 20meq/15ml) 10 meq AD PRN PO POTASSIUM PROTOCOL 08/11/24 07:00 09/10/24 06:59 Zolpidem Tartrate (AmbIEN) 5 mg HS PRN PO INSOMNIA 08/11/24 07:30 09/10/24 07:29 DIAGNOSTICS / RADIOLOGY: [ ] ASSESSMENT: [ Acute complicated cystitis POA Urine culture growing Gram-negative rods Hematuria POA Multifactorial anemia due to above POA Uncontrolled diabetes mellitus type 2 with hypoglycemia POA Uncontrolled hypertension POA \1.2 cm nonobstructive left renal stone mild cystitis CT abdomen/pelvis POA Early acute diverticulosis per CT abdomen/pelvis POA Mass versus cystitis bladder thickening CT abdomen/pelvis POA Large scrotal hydrocele per CT abdomen/pelvis POA Electrolyte imbalance hypocalcemia 8.4 BPH POA Hyperlipidemia POA Dementia POA ] PLAN: [ Admit to: Medical-surgical floor Consults: Urologist Antibiotics: Rocephin Tests: None at this moment NEURO: Minimize central acting medications as possible. Fall Precautions. Well lighted room through the day and minimize interruptions through the night to prevent acute delirium. PULMONARY: Chest x-ray showed cardiac enlargement but clear lungs Supplemental 02 as needed BiPAP as necessary, for respiratory distress Titrate Fio2 to keep Spo2 > or = 90% DuoNebs and CPT as needed IS hourly while awake for pulmonary hygiene Out of bed to chair as tolerated VAP Bundle Maintain aspiration precautions at all times CARDIOVASCULAR: Follow hemodynamics. Vital signs per facility protocol GI & NUTRITION: CT abdomen/pelvis without contrast showed 1.2 cm nonobstructive left renal stone, Myocardial infarction cystitis, diverticulosis, small he has a hernia CT abdomen/pelvis with and without contrast showed early acute diverticulosis. Diverticulitis not excluded. No abscess. Bladder thickening mass versus cystitis. Large scrotal hydrocelle As per urologist cystoscopy outpatient Continue nutritional support Aspirations precautions Prokinetic agents and laxatives as needed KIDNEYS & ELECTROLYTES: Strict monitoring of intake and output Daily weights Avoid nephrotoxic agents Monitor electrolytes and replace as needed Goal urine output of 30mL/hr or 0.5mL/kg/hr Medications to be dosed according to renal function. Avoid contrast if possible ENDOCRINE: Maintain blood glucose between 100-180 at all times. Insulin sliding scale for blood glucose management Hypoglycemia and hyperglycemia protocol in place INFECTIOUS DISEASE: Trend temperature, WBC and procalcitonin level Follow cultures, deescalate antibiotics as soon as possible. Panculture if new onset fever HEMATOLOGY & COAGULATION: Leukocytosis positive on UA Monitor H&H. Keep Hgb > 7 Transfuse 1 unit of PRBC for Hgb < 7 Transfuse 1 pack of platelets of platelets < 20, 000 Watch for any signs and symptoms of bleeding SKIN: Pressure ulcer prevention per facility protocol Specialty mattress as needed Treatment plan discussed with patient and family at the bedside Medications to be reconciled once obtained by patient and/or family and available to be reconciled in computer p.r.n. medication for pain nausea and vomiting Questions were answered We will continue to monitor the patient closely Wordpress Developer for disposition Rehab: PT/OT GI: PPI DVT: SCD's Code Status: Full Resuscitation Disposition: TBD Prognosis: Guarded] ATTESTATION BY PHYSICIAN I have seen and examined the patient. I reviewed the documentation, medical decision making, and treatment plan as noted by the mid-level provider above. I agree with the findings and plan of care. Liz Baron MD, KATAR[employer]Y[facility] B H[employer] DENSITY PRESS OPERATOR Aug 12, 2024 13:05
[2024-08-13] VITALS: BP 157/90; PULSE 58; RESP 18; TEMP 97.8
[2024-08-13 03:41] LABS: BASOPHILS # (AUTO) 0.04 K/uL (0.00-0.20); BASOPHILS % (AUTO) 0.6 % (0.0-5.0); EOSINOPHILS # (AUTO) 0.16 K/uL (0.00-0.70); EOSINOPHILS % (AUTO) 2.5 % (0.0-8.0); HEMATOCRIT 37.4 % (42-54); IMMATURE GRANULOCYTE ABSOLUTE 0.02 K/uL (0-1); LYMPHOCYTES # (AUTO) 1.6 K/uL (1.0-4.8); LYMPHOCYTES % (AUTO) 24.6 % (21.0-51.0); MEAN CORPUSCULAR HEMOGLOBIN 33.2 pg (27.0-33.0); MEAN CORPUSCULAR HGB CONC 32.9 g/dL (32.0-36.0); MEAN CORPUSCULAR VOLUME 101.1 fL (79-99); MONOCYTES # (AUTO) 0.7 K/uL (0.1-1.0); MONOCYTES % (AUTO) 10.2 % (3.0-13.0); NEUTROPHILS % (AUTO) 61.8 % (40.0-77.0); PLATELET COUNT (AUTO) 171 K/uL (130-400); RED CELL DISTRIBUTION WIDTH 12.7 % (11.0-15.5); WHITE BLOOD COUNT (AUTO) 6.5 K/uL (4.8-10.8)
[2024-08-13 04:00] VITALS: BP 130/88; PULSE 80; RESP 18; TEMP 97.3
[2024-08-13 04:00] LABS: BILIRUBIN,TOTAL 0.6 mg/dL (0.2-1.0); POTASSIUM 3.8 mmol/L (3.5-5.1); TOTAL PROTEIN, SERUM 6.4 g/dL (6.0-8.3)
[2024-08-13 08:15] VITALS: BP 170/83; PULSE 67; RESP 18; TEMP 98.1
--- NOTE | 2024-08-13 08:45 | NUR ---
CT/ABDOMEN RESULTS Paged Dr. Paul regarding CT/ABDOMEN results, pending call back at this time.
[2024-08-13 11:34] VITALS: BP 148/88; PULSE 69; RESP 18; TEMP 97.8
[2024-08-13 13:40] VITALS: O2SAT 98
[2024-08-13] MEDS ORDERED: LEVO-70 PO (14:00)
[2024-08-13] MEDS ORDERED: TAMS-1 PO (14:00)
[2024-08-13] MEDS ORDERED: FAMO20TA8 PO (14:00)
--- NOTE | 2024-08-13 14:04 | DS ---
Discharge Summary Hospital Course Summary: DATE OF ADMISSION:[08/11/2024] DATE OF DISCHARGE:[08/13/2024] DISPOSITION:[Home] CONDITION:[Medically stable] CONSULTANTS:[Urologist,] FOLLOW UP APPOINTMENTS:[PCP 2 to 3 days. Urologist 2 to 3 weeks, GI 4 to 6 weeks] PROCEDURES:[None] IMAGING: report attached to summary MICROBIOLOGY: report attached to summary ACTIVITY:[Independent] HOME MEDICATIONS: see [facility] NEW MEDICATIONS:[Famotidine 20 mg p.o. daily, levofloxacin 500 mg p.o. daily times 10 days, tamsulosin 0.4 mg p.o. daily] EMERGENCY INSTRUCTIONS: The patient was instructed to present to the nearest Emergency departmentr or call 911 once their symptoms will return or worsen [employer] Administrator(s): [Patient is 84 years old male with a past medical history of BPH, hypertension, diabetes, hyperlipidemia, dementia, who came to emergency department with a complaint of painful urination for the past about 1 to 2 weeks. Patient is very poor historian and two each health care provider who comes to the room he tells in some ways different stories. As per ED patient already has been 3 times in [facility] and other facilities for the same problem. Patient stated he does not take any antibiotics and had Leonard catheter inserted. He stated that he has been urinating blood but hearing ER there was no blood seen in the urine, but urinalysis is positive for urine occult blood large. 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 Throughout the hospitalization chest x-ray was ordered and showed cardiomegaly but clear lungs. CT abdomen/pelvis showed 1.2 cm nonobstructive left renal s tone mild cystitis diverticulosis, small hiatal hernia. Repeated CT abdomen/pelvis with with without contrast showed diverticulosis early acute diverticulitis not excluded no abscess. Bladder thickening mass versus cystitis. Largest scrotal hydrocele. Scrotal ultrasound showed right testes and bilateral epididymitis not well visualized due to hydro Stephy. Patient was evaluated by urologist and at this moment it is recommended that patient goes home treat the urine infection that was positive for Proteus mirabilis and comes back outpatient for cystoscopy. Follow up with the urologist in 2 to 3 weeks. Also due to diverticulosis/diverticulitis patient to follow up with the GI outpatient in 4 to 6 weeks. Patient denies any shortness of breath, chest pain, nausea, vomiting or any other discomfort. Patient also follow ups with PCP in 2 to 3 days. Procedure(s): PHYSICAL EXAM GENERAL APPEARANCE: The patient is awake, alert, and oriented, in no acute cardiopulmonary distress. NEUROLOGICAL: Cranial nerves II-XII grossly intact. Motor is 5/5 in bilateral upper and lower extremities proximal to distal. No sensory deficits. HEENT: Face is symmetric. Pupils are equal and reactive. Extraocular movements are intact. NECK: Supple. No JVD. No thyromegaly. No submental, submandibular, pre- /postauricular, occipital or supraclavicular lymphadenopathy. CHEST: Normal chest expansion. No Telemetry. LUNGS: Absence of any rales, rhonchi or any wheezing. CARDIOVASCULAR: Regular. S1 and S2 normal. No appreciable rubs, murmurs or gallops. ABDOMEN: Soft, nontender, and nondistended. There is no rebound, voluntary guarding, or rigidity. : Deferred. No Leonard. EXTREMITIES: Non-edematous and not cyanotic. No clubbing. Good capillary refill. SKIN: No skin breakdown. Assessment/Plan: ASSESSMENT: [ Acute complicated cystitis POA Urine culture growing Gram-negative rods Hematuria POA Multifactorial anemia due to above POA Uncontrolled diabetes mellitus type 2 with hypoglycemia POA Uncontrolled hypertension POA \1.2 cm nonobstructive left renal stone mild cystitis CT abdomen/pelvis POA Early acute diverticulosis per CT abdomen/pelvis POA Mass versus cystitis bladder thickening CT abdomen/pelvis POA Large scrotal hydrocele per CT abdomen/pelvis POA Electrolyte imbalance hypocalcemia 8.4 BPH POA Hyperlipidemia POA Dementia POA ] Time spent arranging discharge: 31-60 minutes ATTESTATION BY PHYSICIAN I have seen and examined the patient. I reviewed the documentation, medical decision making, and treatment plan as noted by the mid-level provider above. I agree with the findings and plan of care. Liz Baron MD, KATARZYNA B APRN Aug 13, 2024 14:04
--- NOTE | 2024-08-13 15:00 | NUR ---
Discharge Patient discharged home, accompanied by family. Patient received discharge instructions, verbalized understanding. Patient understand he has to follow up with urologist. No questions or concerns at this time.
[2024-08-14] MEDS ORDERED: tamSULOsin HCL 0.4 MG CAP.ER.24H PO SCH (10:30)
== END 2024-08-13 16:30 | disposition home or self-care (01) | DRG 690 ==
LOC: EDBD 03:21 → EDH 03:21 → EDHIP 07:04 → 4DH 15:10
PROVIDERS: ADMIT Hospitalist; ATTEND Hospitalist
DX: N30.00 Acute cystitis without hematuria (principal); I10 Essential (primary) hypertension; E11.649 Type 2 diabetes mellitus with hypoglycemia without coma; Z20.822 Contact with and (suspected) exposure to COVID-19; D64.9 Anemia, unspecified; E83.51 Hypocalcemia; E78.00 Pure hypercholesterolemia, unspecified; N20.0 Calculus of kidney; N40.0 Benign prostatic hyperplasia without lower urinary tract symptoms; N43.3 Hydrocele, unspecified; Z85.038 Personal history of other malignant neoplasm of large intestine
CPT/HCPCS: 36415; 71045; 74176; 74178; 76870; 80048; 80053; 80076; 81001; 82140; 82550; 82948; 83036; 83605; 83735; 83880; 84145; 84484; 85025; 85610; 85730; 87040; 87086; 87186; 87426; 87804; 96374; 96375; 99285; G0378; J0696; J1885; J2270; J7030; Q9967